=== PATIENT | female | born 1935 | race Caucasian/White ===

== ENCOUNTER 2018-02-19 15:17 | Emergency (ER) | payer OTHER ==
[~2018-02-19] VITALS: Ht 149.9 cm; Wt 72.6 kg
[2018-02-19 15:23] VITALS: BP 182/75
[2018-02-19] MEDS ORDERED: NACL 0.9% 1,000 ML IV SCH (15:42)
[2018-02-19] MEDS ORDERED: NACL 0.9% 1,000 ML IV ONE (15:42)
[2018-02-19] MEDS ORDERED: ONDANSETRON 4 MG/2 ML VIAL IVP ONE (15:45)
[2018-02-19] MEDS ORDERED: metroNIDAZOLE 500 MG/NS PREMIX 100 ML IV ONE (15:45)
[2018-02-19] MEDS ORDERED: MORPHINE SULFATE 2 MG/ML SYR IVP ONE (15:45)
[2018-02-19] MEDS ORDERED: LORA10TA19 PO (15:49)
[2018-02-19] MEDS ORDERED: PREG100C PO (15:49)
[2018-02-19] MEDS ORDERED: METF1TAB34 PO (15:49)
[2018-02-19] MEDS ORDERED: SITA100T8 PO (15:49)
[2018-02-19] MEDS ORDERED: VALS320T2 PO (15:49)
[2018-02-19] MEDS ORDERED: VITA-204 PO (15:49)
[2018-02-19] MEDS ORDERED: AMIT50TA27 PO (15:49)
[2018-02-19] MEDS ORDERED: PANT40EC28 PO (15:49)
[2018-02-19] MEDS ORDERED: METF850T4 PO (15:49)
[2018-02-19] MEDS ORDERED: CANA100T PO (15:49)
[2018-02-19] MEDS ORDERED: TRA200 PO (15:49)
[2018-02-19] MEDS ORDERED: DEXL60EC PO (15:49)
[2018-02-19] MEDS ORDERED: AMYL-13 PO (15:49)
[2018-02-19 16:03] LABS: BASOPHILS % (AUTO) 0.4 % (0.0-2.0); EOSINOPHILS # (AUTO) 0.1 K/uL (0-0.4); EOSINOPHILS % (AUTO) 1.3 % (0.0-4.0); HEMATOCRIT 32.1 % (36-48); HEMOGLOBIN 10.6 g/dL (12.0-16.0); LYMPHOCYTES # (AUTO) 2.1 K/uL (2.5-16.5); LYMPHOCYTES % (AUTO) 37.3 % (20.5-51.1); MEAN CORPUSCULAR HEMOGLOBIN 32 pg (27-31); MEAN CORPUSCULAR HGB CONC 33 g/dL (33-37); MEAN CORPUSCULAR VOLUME 96.5 fL (80-94); MONOCYTES # (AUTO) 0.5 K/uL (0.8-1.0); MONOCYTES % (AUTO) 8.4 % (1.7-9.3); NEUTROPHILS % (AUTO) 52.6 % (42.2-75.2); PLATELET COUNT (AUTO) 254 K/uL (140-450); RED BLOOD CELL COUNT(AUTO) 3.32 MIL/uL (4.20-5.40); RED CELL DISTRIBUTION WIDTH 13.6 % (11.6-13.7); WHITE BLOOD COUNT (AUTO) 5.7 K/uL (4.8-10.8)
[2018-02-19 16:12] LABS: ANION GAP 11.6 (8-16); CARBON DIOXIDE 23.9 mmol/L (21-32); CHLORIDE 107 mmol/L (98-107); CREATININE 1.3 mg/dL (0.6-1.3); GLUCOSE 164 mg/dL (74-106); POTASSIUM 4.5 mmol/L (3.5-5.1); SODIUM SERUM 138 mmol/L (136-145); UREA NITROGEN, BLOOD 22 mg/dL (7-18)
[2018-02-19 16:18] LABS: ALBUMIN 3.4 g/dL (3.4-5.0); AMYLASE 50 U/L (25-115); ASPARTATE AMINOTRANSFERASE 22 U/L (15-37); LIPASE 175 U/L (73-393); TOTAL BILIRUBIN 0.3 mg/dL (0.0-1.0)
[2018-02-19 16:45] LABS: APPEARANCE,URINE CLEAR (CLEAR); BILIRUBIN,URINE NEGATIVE (NEGATIVE); BLOOD, URINE NEGATIVE (NEGATIVE); COLOR,URINE YELLOW (YELLOW); LEUKOCYTE ESTERASE ,URINE NEGATIVE (NEGATIVE); NITRITE, URINE NEGATIVE (NEGATIVE); PH,URINE 5.5 (5.0-9.0); UGLUCOSE 3+ (NEGATIVE)
[2018-02-19 18:16] VITALS: BP 165/75
== END 2018-02-19 18:14 | disposition home or self-care (01) ==
LOC: MED 15:17
DX: A05.9 Bacterial foodborne intoxication, unspecified (principal); R19.7 Diarrhea, unspecified; R11.0 Nausea; E86.0 Dehydration; E11.9 Type 2 diabetes mellitus without complications; I10 Essential (primary) hypertension; M19.90 Unspecified osteoarthritis, unspecified site; Z90.49 Acquired absence of other specified parts of digestive tract; Z90.710 Acquired absence of both cervix and uterus; Z86.718 Personal history of other venous thrombosis and embolism; Z79.899 Other long term (current) drug therapy; Z79.84 Long term (current) use of oral hypoglycemic drugs; Z88.8 Allergy status to other drugs, medicaments and biological substances
CPT/HCPCS: 36415; 74176; 80053; 81003; 82150; 83690; 85025; 96365; 96375; 99285; J2270; J2405; J3490

== ENCOUNTER 2018-04-17 19:52 | Emergency (ER) | payer OTHER ==
[~2018-04-17] VITALS: Ht 152.4 cm; Wt 71.7 kg
[~2018-04-17 19:52] MED LIST: AMIT50TA27 PO; AMYL-13 PO; CANA100T PO; DEXL60EC PO; LORA10TA19 PO; METF1TAB34 PO; METF850T4 PO; PANT40EC28 PO; PREG100C PO; SITA100T8 PO; TRA200 PO; VALS320T2 PO; VITA-204 PO
[2018-04-17 20:00] VITALS: BP 122/55
--- NOTE | 2018-04-17 20:05 | NUR ---
TO BED # 3 AMBULATORY, REPORT GIVEN TO TREE GERARDO.
--- NOTE | 2018-04-17 20:13 | NUR ---
83/F CAME IN W C/O GENERALIZED WEAKNESS AND "FEELING SOMETHING STUCK IN HER THROAT" SINCE THIS AM. NO ACUTE RESPIRATORY DISTRESS, NO STRIDOR, DROOLING NOTED. ALL LUNG SOUNDS CBTA, 18RR EVEN AND UNLABORED. PT WAS WHEELCHAIR ASSISTED TO BED. PLACED ON BEDSIDE MONITOR. PMH: HTN, DM, ARTHRITIS
[2018-04-17] MEDS ORDERED: NACL 0.9% 1,000 ML IV ONE (21:05)
[2018-04-17 21:24] LABS: BASOPHILS % (AUTO) 0.4 % (0.0-2.0); EOSINOPHILS # (AUTO) 0.1 K/uL (0-0.4); EOSINOPHILS % (AUTO) 1.4 % (0.0-4.0); HEMATOCRIT 30.4 % (36-48); HEMOGLOBIN 10.1 g/dL (12.0-16.0); MEAN CORPUSCULAR HEMOGLOBIN 32 pg (27-31); MEAN CORPUSCULAR HGB CONC 33 g/dL (33-37); MONOCYTES # (AUTO) 1.1 K/uL (0.8-1.0); MONOCYTES % (AUTO) 10.3 % (1.7-9.3); NEUTROPHILS # (AUTO) 7.2 K/uL (1.8-7.7); NEUTROPHILS % (AUTO) 68.9 % (42.2-75.2); PLATELET COUNT (AUTO) 226 K/uL (140-450); RED BLOOD CELL COUNT(AUTO) 3.17 MIL/uL (4.20-5.40); RED CELL DISTRIBUTION WIDTH 13.5 % (11.6-13.7); WHITE BLOOD COUNT (AUTO) 10.4 K/uL (4.8-10.8)
[2018-04-17 21:43] LABS: ANION GAP 10.8 (8-16); CARBON DIOXIDE 25.8 mmol/L (21-32); CHLORIDE 104 mmol/L (98-107); CREATININE 1.7 mg/dL (0.6-1.3); GLUCOSE 155 mg/dL (74-106); POTASSIUM 4.6 mmol/L (3.5-5.1); SODIUM SERUM 136 mmol/L (136-145); UREA NITROGEN, BLOOD 29 mg/dL (7-18)
[2018-04-17 21:49] LABS: ALBUMIN 3.3 g/dL (3.4-5.0); ASPARTATE AMINOTRANSFERASE 10 U/L (15-37); TOTAL BILIRUBIN 0.3 mg/dL (0.0-1.0)
[2018-04-17 21:51] LABS: BILIRUBIN,URINE NEGATIVE (NEGATIVE); BLOOD, URINE NEGATIVE (NEGATIVE); COLOR,URINE YELLOW (YELLOW); LEUKOCYTE ESTERASE ,URINE 1+ (NEGATIVE); NITRITE, URINE NEGATIVE (NEGATIVE); UGLUCOSE 3+ (NEGATIVE)
[2018-04-17 22:05] LABS: APPEARANCE,URINE HAZY (CLEAR)
[2018-04-17 22:11] LABS: RBC,URINE NONE SEEN /HPF (0-5)
[2018-04-17] MEDS ORDERED: LEVOFLOXACIN 500 MG TAB PO ONE (22:20)
--- NOTE | 2018-04-17 22:48 | NUR ---
Patient appears to be resting comfortably in bed. Vital Signs within normal limits. Respirations even and unlabored.
--- NOTE | 2018-04-17 23:10 | NUR ---
Patient discharged with v/s stable. Written and verbal after care instructions given and explained. Patient alert, oriented and verbalized understanding of instructions. WHEELCHARI ASSISTED TO CAR. All questions addressed prior to discharge. ID band removed. Patient advised to follow up with PMD. Rx of CIPRO AND IBUPROFEN given. Patient educated on indication of medication including possible reaction and side effects. Opportunity to ask questions provided and answered.
--- NOTE | 2018-04-17 23:10 | NUR ---
Note mickieanabella in EDM - 04/17/18 at 2319 by AKI Patient discharged with v/s stable. Written and verbal after care instructions given and explained. Patient alert, oriented and verbalized understanding of instructions. Ambulatory with steady gait. All questions addressed prior to discharge. ID band removed. Patient advised to follow up with PMD. Rx of CIPRO AND IBUPROFEN given. Patient educated on indication of medication including possible reaction and side effects. Opportunity to ask questions provided and answered.
[2018-04-17 23:18] VITALS: BP 129/51
== END 2018-04-17 23:10 | disposition home or self-care (01) ==
LOC: MED 19:52
DX: S27.818A Other injury of esophagus (thoracic part), initial encounter (principal); N39.0 Urinary tract infection, site not specified; E11.9 Type 2 diabetes mellitus without complications; I10 Essential (primary) hypertension; Z79.84 Long term (current) use of oral hypoglycemic drugs; Z79.899 Other long term (current) drug therapy; Z88.8 Allergy status to other drugs, medicaments and biological substances; X58.XXXA Exposure to other specified factors, initial encounter; Y93.89 Activity, other specified; Y92.89 Other specified places as the place of occurrence of the external cause; Y99.8 Other external cause status
CPT/HCPCS: 36415; 70490; 71045; 80053; 81001; 82948; 83605; 84484; 85025; 85610; 85730; 87040; 87086; 99285; Q0092

== ENCOUNTER 2019-03-09 14:40 | Emergency (ER) | payer OTHER ==
[~2019-03-09] VITALS: Ht 149.9 cm; Wt 68.5 kg
[~2019-03-09 14:40] MED LIST changes: +METF-350 PO; -METF850T4 PO
[2019-03-09 14:57] VITALS: BP 137/53
--- NOTE | 2019-03-09 15:02 | NUR ---
Patient ambulated with assistance to bed 4.
--- NOTE | 2019-03-09 15:13 | NUR ---
BIB DAUGHTER C/O R RIB PAIN X 2 DAYS S/P FALLING WHILE LEANING FOWARD TRYING TO PICK SOMETHING UP. DENIES N/V/D; SKIN IS PINK/WARM/DRY; AAOX4 WITH EVEN AND STEADY GAIT; PT DENIES ANY FEVER, CP, SOB, OR COUGH AT THIS TIME; PATIENT STATES PAIN OF 10/10 AT THIS TIME; VSS; PATIENT POSITIONED FOR COMFORT; HOB ELEVATED; BEDRAILS UP X1; BED DOWN. ER MD MADE AWARE OF PT STATUS.
[2019-03-09] MEDS ORDERED: KETOROLAC 30 MG/ML VIAL IM ONE (15:35)
[2019-03-09] MEDS ORDERED: HYDROcodone/APAP 5/325 MG 1 TAB TAB PO ONE (15:35)
--- NOTE | 2019-03-09 15:40 | NUR ---
Pt refused to take [place].
[2019-03-09 17:09] VITALS: BP 133/60
--- NOTE | 2019-03-09 17:10 | NUR ---
Patient discharged with v/s stable. Written and verbal after care instructions given and explained to daughter. Patient alert, oriented and daughter verbalized understanding of instructions. Ambulatory with steady gait. All questions addressed prior to discharge. Patient advised to follow up with PMD. Rx of [place] and Colace given. Patient educated on indication of medication including possible reaction and side effects. Opportunity to ask questions provided and answered.
== END 2019-03-09 17:00 | disposition home or self-care (01) ==
LOC: MED 14:40
DX: S20.20XA Contusion of thorax, unspecified, initial encounter (principal); E11.9 Type 2 diabetes mellitus without complications; I10 Essential (primary) hypertension; Z90.49 Acquired absence of other specified parts of digestive tract; Z79.84 Long term (current) use of oral hypoglycemic drugs; Z79.899 Other long term (current) drug therapy; Z88.8 Allergy status to other drugs, medicaments and biological substances; W18.2XXA Fall in (into) shower or empty bathtub, initial encounter; Y93.89 Activity, other specified; Y92.89 Other specified places as the place of occurrence of the external cause; Y99.8 Other external cause status
CPT/HCPCS: 71101; 96372; 99283; J1885